=== PATIENT | male | born 1975 | race Caucasian/White ===

== ENCOUNTER → 2021-03-20 09:55 | Outpatient (CLI) | payer OTHER, SELFPAY ==
[2020-09-24 14:53] VITALS: BMI 34.9
[2021-03-20 10:32] LABS: Absolute Lymphocyte Count 2.89 X10^3/uL (0.83-4.51); Absolute Neutrophil Count 5.2 X10^3/uL (2.0-7.7); Basophil# 0.06 X10^3/uL; Basophil% 0.7 % (0-1); Eosinophil# 0.22 X10^3/uL; Eosinophils% 2.4 % (0-5); Hematocrit 42.8 % (40-54); Hemoglobin 14.2 g/dL (13.0-16.5); Lymphocyte # 2.89 X10^3/ul (0.83-4.51); Lymphocyte % 31.7 % (19-41); Mean Corp Hgb Conc 33.2 g/dL (32-36); Mean Corpuscular Hgb 28.7 pg (27.0-32.0); Mean Corpuscular Volume 86.6 fL (80-94); Mean Platelet Vol. 10.2 fl (6.2-12.0); Monocyte# 0.72 X10^3/uL; Monocyte% 7.9 % (0-10); NRBC Flagged by Analyzer 0 % (0-5); Neutrophil # 5.19 X10^3/uL (2.7-7.7); Neutrophil % 56.9 % (47-70); Platelet Count 284 K/mm3 (150-450); RBC Distribution Width SD 44.2 fl (35.1-43.9); Red Blood Count 4.94 M/mm3 (4.6-6.2); White Blood Count 9.1 K/mm3 (4.4-11.0)
[2021-03-20 11:05] LABS: Ferritin 37 ng/mL (26-388); Iron 80 ug/dL (65-175); Iron Binding Capacity,Total 320 ug/dL (250-450)
[2021-03-20 18:00] LABS: Xtra Tube EP Lab EXTRA TUBE
== END ==
LOC: LAB 09:57
PROVIDERS: PCP Student in an Organized Health Care Education/Training Program; Visit Provider Internal Medicine Hematology & Oncology
DX: D50.9 Iron deficiency anemia, unspecified (principal)
CPT/HCPCS: 36415; 82728; 83540; 83550; 85025

== ENCOUNTER → 2021-04-12 09:15 | Outpatient (CLI) | payer OTHER, SELFPAY ==
[2021-03-30 15:12] VITALS: BMI 35.0
--- NOTE | 2021-04-12 09:19 | RAD_ITS ---
STUDY: X-RAY - ORBITS REASON FOR EXAM: Male, 46 years old. PRIOR TO MRI -- MRI TO BE DONE AT ANOTHER FACILITY TECHNIQUE: 2 view(s) of the orbits were obtained. COMPARISON: None. FINDINGS: Normal bilateral orbits without a metallic orbital foreign body. Normal visualized facial bones. Normal paranasal sinuses. The soft tissue structures are unremarkable. RAD/Orbits for Foreign Body IMPRESSION: No demonstrated metallic orbital foreign body. The patient is cleared for an MRI examination. Electronically Signed: Luca Figueroa MD at 10:07 EDT , Service support ,
== END ==
PROVIDERS: PCP Student in an Organized Health Care Education/Training Program
DX: Z01.818 Encounter for other preprocedural examination (principal)
CPT/HCPCS: 70030

== ENCOUNTER 2022-08-09 16:16 | Emergency (ER) | payer SELFPAY ==
[2022-08-09 16:17] VITALS: BP 186/102; PULSE 88; RESP 15; TEMP 36.6; O2SAT 100; BMI 35.9
--- NOTE | 2022-08-09 17:18 | EDS_ITS ---
HPI History of Present Illness Chief Complaint: Upper Extremity Injury [facility] Medical History Bifascicular block CAD (coronary artery disease) Chronic headaches Diabetes mellitus Elevated liver enzymes Generalized anxiety disorder with panic attacks Genital warts Heart failure with preserved ejection fraction, borderline, class II History of head injury History of hyperkalemia History of hypermagnesemia Hyperlipidemia, mixed Hypertension Iron deficiency Left anterior fascicular block Left ventricular hypertrophy Leukocytosis Marijuana use Morbid obesity Non-insulin dependent type 2 diabetes mellitus Onycholysis of toenail MOSHE (obstructive sleep apnea) [place]-Schlatter's disease Peripheral edema Right bundle branch block Subclinical hypothyroidism Thrombocytosis Unstable angina Home Medications acetaminophen 325 mg tablet 650 mg PO Q4H PRN PRN Pain 1-10 Or Fever 09/07/20 [History Last Taken Unknown] aspirin 81 mg tablet,delayed release 81 mg PO DAILY 09/07/20 [History Last Taken Unknown] atorvastatin 40 mg tablet 40 mg PO QHS 09/07/20 [History Last Taken Unknown] icosapent ethyl 1 gram capsule 2 g PO BID 09/07/20 [History Last Taken Unknown] lisinopril 10 mg tablet 10 mg PO DAILY 09/07/20 [History Last Taken Unknown] metformin 1,000 mg tablet 1,000 mg PO BID 09/07/20 [History Last Taken Unknown] metoprolol succinate 100 mg tablet,extended release 24 hr 100 mg PO DAILY 09/07/20 [History Last Taken Unknown] glipizide 5 mg tablet 5 mg PO DAILY 10/18/21 [History Last Taken Unknown] oxycodone-acetaminophen 5 mg-325 mg tablet (Percocet) 1 tab PO Q6H PRN pain 3 days #10 tabs 08/09/22 [Rx Last Taken Unknown] Allergy/AdvReac Type Severity Reaction Status Date / Time No Known Allergies Allergy Verified 08/09/22 16:17 Family History Mother Arthritis CHF (congestive heart failure) CAD (coronary artery disease) Depression Fibromyalgia Heart disease Heart failure Hypertension Father Arthritis COPD (chronic obstructive pulmonary disease) CAD (coronary artery disease) Heart disease Hypertension Hypercholesteremia History of PTCA CVA (cerebral vascular accident) Grandmother Breast cancer Unknown CVA (cerebral vascular accident) Surgical History S/P CABG x 2 Social History Smoking Status: Current every day smoker tobacco type: cigarettes alcohol intake: never substance use type: does not use chaitanya/methodist: Adventist seatbelt use: always do you feel safe at home: Yes EXAM Physical Exam Const Vital Signs: 08/09/22 16:17 Temperature 97.8 F Temperature Source Temporal Pulse Rate 88 Respiratory Rate 15 Blood Pressure 186/102 H Blood Pressure Mean 130 Pulse Ox 100 Oxygen Delivery Method Room Air MDM MDM MDM Narrative Medical decision making narrative: I have personally performed a face to face assessment of the patient and have reviewed the TIFFANY Note. I performed a substantive portion of the visit including all aspects of the following. My henriquez findings include: History is [patient presents the emergency department with an injury to his left upper arm. Patient states that he was holding up a transmission as he was working on a clutch on his vehicle when he felt and heard a pop in the posterior aspect of his upper arm and he had severe and immediate pain. Patient is right-hand dominant.] Exam is [HEENT-PERRLA, EOMI. Cranial nerves II through XII grossly intact. TMs clear. Mucous membranes moist. No adenopathy. Cardiovascular-regular rate and rhythm without murmur or ectopy Lungs-clear to auscultation, chest wall stable without crepitus or subcu emphysema Abdomen-normoactive bowel sounds, soft, nontender, no rebound or rigidity, no peritoneal signs. Extremities-intact ?4. Left arm-patient has tenderness palpation over the distal humerus posteriorly at the insertion of the triceps tendon. There is a fullness there. He is able to fully extend the arm. He is neurovascular intact distally.] Medical Decison Making [patient will have x-rays of his humerus obtained. Patient case will be discussed with Ortho PT physician on-call as I suspect patient may have a tear of his tricep muscle or tendon. Patient will be given a sling and prescription for pain medicine such as [place]. Patient to follow-up with orthopedics in 3 to 5 days.] X-rays did show questionable avulsion fracture posterior elbow. We discussed case with orthopedic surgeon who recommended sling and pain control and they can see him in the office for follow-up. I suspect possibility of a tricep tendon rupture. Other additions or changes: [None] Radiography Diagnostic Testin view x-rays of humerus obtained interpreted by myself as no acute fractures or dislocations. Radiology felt there might be a subtle avulsion fracture posterior elbow versus dystrophic calcification Discharge Plan Triage Chief Complaint: Upper Extremity Injury ED Midlevel Provider: Radha Lopez ED Provider: Orlin Hood Dx/Rx/DC Orders Prescriptions: No Action glipizide 5 mg tablet 5 mg PO DAILY atorvastatin 40 MG tablet 40 mg PO QHS acetaminophen 325 MG tablet 650 mg PO Q4H PRN PRN (Reason: Pain 1-10 Or Fever) metoprolol succinate 100 MG tablet extended release 24 hr 100 mg PO DAILY aspirin 81 MG tablet,delayed release (DR/EC) 81 mg PO DAILY metformin 1,000 MG tablet 1,000 mg PO BID lisinopril 10 MG tablet 10 mg PO DAILY icosapent ethyl 1 GM capsule 2 g PO BID Primary Care Provider: Delano Poole Referrals: Delano Poole DO [Primary Care Provider] -
--- NOTE | 2022-08-09 17:18 | EX.ED.UPPERE ---
HPI History of Present Illness Chief Complaint: Upper Extremity Injury Narrative Narrative: Patient presents today with left arm pain. He is he was working today with a heavy transmission that he was holding up above his head when he felt a pop in the back of his upper left arm. He states shortly after this his left upper arm became very swollen and he started to notice bruising in the area. He states he has felt some intermittent tingling in his wrist and fingers. He is concerned that he tore a muscle in the back of his upper arm. He denies any other injuries. [facility] Medical History Bifascicular block CAD (coronary artery disease) Chronic headaches Diabetes mellitus Elevated liver enzymes Generalized anxiety disorder with panic attacks Genital warts Heart failure with preserved ejection fraction, borderline, class II History of head injury History of hyperkalemia History of hypermagnesemia Hyperlipidemia, mixed Hypertension Iron deficiency Left anterior fascicular block Left ventricular hypertrophy Leukocytosis Marijuana use Morbid obesity Non-insulin dependent type 2 diabetes mellitus Onycholysis of toenail MOSHE (obstructive sleep apnea) [place]-Schlatter's disease Peripheral edema Right bundle branch block Subclinical hypothyroidism Thrombocytosis Unstable angina Home Medications acetaminophen 325 mg tablet 650 mg PO Q4H PRN PRN Pain 1-10 Or Fever 09/07/20 [History Last Taken Unknown] aspirin 81 mg tablet,delayed release 81 mg PO DAILY 09/07/20 [History Last Taken Unknown] atorvastatin 40 mg tablet 40 mg PO QHS 09/07/20 [History Last Taken Unknown] icosapent ethyl 1 gram capsule 2 g PO BID 09/07/20 [History Last Taken Unknown] lisinopril 10 mg tablet 10 mg PO DAILY 09/07/20 [History Last Taken Unknown] metformin 1,000 mg tablet 1,000 mg PO BID 09/07/20 [History Last Taken Unknown] metoprolol succinate 100 mg tablet,extended release 24 hr 100 mg PO DAILY 09/07/20 [History Last Taken Unknown] glipizide 5 mg tablet 5 mg PO DAILY 10/18/21 [History Last Taken Unknown] oxycodone-acetaminophen 5 mg-325 mg tablet (Percocet) 1 tab PO Q6H PRN pain 3 days #10 tabs 08/09/22 [Rx Last Taken Unknown] Allergy/AdvReac Type Severity Reaction Status Date / Time No Known Allergies Allergy Verified 08/09/22 16:17 Family History Mother Arthritis CHF (congestive heart failure) CAD (coronary artery disease) Depression Fibromyalgia Heart disease Heart failure Hypertension Father Arthritis COPD (chronic obstructive pulmonary disease) CAD (coronary artery disease) Heart disease Hypertension Hypercholesteremia History of PTCA CVA (cerebral vascular accident) Grandmother Breast cancer Unknown CVA (cerebral vascular accident) Surgical History S/P CABG x 2 Social History Smoking Status: Current every day smoker tobacco type: cigarettes alcohol intake: never substance use type: does not use chaitanya/baptism: Jain seatbelt use: always do you feel safe at home: Yes ROS ROS ED Constitutional Constitutional ED: Denies chills, fever(s) or sweats Eyes Eyes: Denies blurry vision, change in vision or diplopia ENT ENT ED: Denies rhinorrhea or sore throat Cardiovascular Cardiovascular: Denies chest pain or palpitations Respiratory/Chest Respiratory/Chest: Denies cough, dyspnea or dyspnea on exertion Gastrointestinal Gastrointestinal: Denies abdominal pain, diarrhea, nausea or vomiting Genitourinary Genitourinary ED: Denies dysuria, hematuria or urinary frequency Musculoskeletal Musculoskeletal: Reports extremity pain and limited range of motion; Denies back pain or neck pain Integumentary Denies abscess, Abrasions or rash Neurologic Neurologic: Denies headache(s), paresthesias or weakness Psychiatric Psychiatric: Denies anxiety or depression Hematologic/Lymphatic Hematologic/Lymphatic: Denies easy bleeding EXAM Physical Exam Const Vital Signs: 08/09/22 16:17 Temperature 97.8 F Temperature Source Temporal Pulse Rate 88 Respiratory Rate 15 Blood Pressure 186/102 H Blood Pressure Mean 130 Pulse Ox 100 Oxygen Delivery Method Room Air Positive well nourished and well developed General Appearance ED: well developed and NAD HEENT Reports moist mucous membranes normocephalic and atraumatic Eyes PERRL and EOMs intact bilaterally Neck full ROM and supple Chest Wall inspection of chest normal and palpation of chest normal Resp normal respiratory effort and clear to auscultation bilaterally Cardio regular rate, regular rhythm and no murmurs GI non-tender, non-distended and no masses Palpation: soft Back/Spine Cervical Spine: Negative for cervical spine tenderness Thoracic Spine / Upper Back: Negative for thoracic spinal tenderness Lumbar Spine / Lower Back: Negative for lumbar spinal tenderness Extremity Extremity Narrative: Patient has edema, tenderness, and ecchymosis to the posterior aspect of L upper arm. Neuro oriented x3 MDM MDM MDM Narrative Medical decision making narrative: I have personally performed a face to face assessment of the patient and have reviewed the TIFFANY Note. I performed a substantive portion of the visit including all aspects of the following. My henriquez findings include: History is [patient presents the emergency department with an injury to his left upper arm.? Patient states that he was holding up a transmission as he was working on a clutch on his vehicle when he felt and heard a pop in the posterior aspect of his upper arm and he had severe and immediate pain.? Patient is right-hand dominant.] Exam is [HEENT-PERRLA, EOMI.? Cranial nerves II through XII grossly intact.? TMs clear.? Mucous membranes moist.? No adenopathy. Cardiovascular-regular rate and rhythm without murmur or ectopy Lungs-clear to auscultation, chest wall stable without crepitus or subcu emphysema Abdomen-normoactive bowel sounds, soft, nontender, no rebound or rigidity, no peritoneal signs. Extremities-intact ?4.? Left arm-patient has tenderness palpation over the distal humerus posteriorly at the insertion of the triceps tendon.? There is a fullness there.? He is able to fully extend the arm.? He is neurovascular intact distally.] Medical Decison Making [patient will have x-rays of his humerus obtained.? Patient case will be discussed with Ortho PT physician on-call as I suspect patient may have a tear of his tricep muscle or tendon.? Patient will be given a sling and prescription for pain medicine such as [place].? Patient to follow-up with orthopedics in 3 to 5 days.] Other additions or changes: [None] Patient was provided pain control here in the ED. He will be following up with Dr. Traore. He was provided a sling. Patient is comfortable with plan and I am comfortable with patient discharging home. He has been sent home with pain control. He has been instructed to ice the area for the next few days. Radiography Diagnostic Testin view x-rays of humerus obtained interpreted by myself as no acute fractures or dislocations.? Radiology in agreement. This x-ray was also reviewed and interpreted by attending ED physician. Discharge Plan Triage Chief Complaint: Upper Extremity Injury ED Midlevel Provider: Radha Lopez ED Provider: Orlin Hood Dx/Rx/DC Orders Clinical Impression: Injury of tendon of triceps Instructions: ED Sling Prescriptions: New oxycodone-acetaminophen [Percocet] 5-325 mg tablet 1 tab PO Q6H PRN (Reason: pain) 3 Days Qty: 10 0RF No Action glipizide 5 mg tablet 5 mg PO DAILY atorvastatin 40 MG tablet 40 mg PO QHS acetaminophen 325 MG tablet 650 mg PO Q4H PRN PRN (Reason: Pain 1-10 Or Fever) metoprolol succinate 100 MG tablet extended release 24 hr 100 mg PO DAILY aspirin 81 MG tablet,delayed release (DR/EC) 81 mg PO DAILY metformin 1,000 MG tablet 1,000 mg PO BID lisinopril 10 MG tablet 10 mg PO DAILY icosapent ethyl 1 GM capsule 2 g PO BID Primary Care Provider: Delano Poole Referrals: Baudilio Traore DO [Med Staff - Active Staff] - 3-5 Days Delano Poole DO [Primary Care Provider] - Activity Restrictions/Additional Instructions: You can ice the area for 10 to 15 minutes 3-4 times a day for the next few days. Follow-up with Dr. Traore in orthopedics. You can move your arm as tolerated but do use sling. Disposition Disposition: Home, Self Care Discharge Date/Time: 08/09/22 18:57
--- NOTE | 2022-08-09 17:25 | RAD_ITS ---
STUDY: X-RAY - LEFT HUMERUS REASON FOR EXAM: Male, 47 years old. injury TECHNIQUE: 2 view(s) of the humerus. COMPARISON: None. FINDINGS: Normal visualized humerus. There is no demonstrated fracture or osseous destructive process. 2 subcutaneous 4 to 5 mm ossific densities noted posterior to the elbow. There is no demonstrated soft tissue abnormality. RAD/Humerus min 2 Views IMPRESSION: Avulsion fracture versus dystrophic calcification versus subcutaneous foreign body posterior elbow. Electronically Signed: Maykel Garcia MD at 17:59 EST ,
[2022-08-09] MEDS: HYDROcodone Bitartrate/Apap 5/325 Tablet PO (17:55)
== END 2022-08-09 18:57 | disposition home or self-care (01) ==
PROVIDERS: Emergency Provider Emergency Medicine; PCP Student in an Organized Health Care Education/Training Program; Visit Provider Emergency Medicine
DX: M79.622 Pain in left upper arm (principal); I11.0 Hypertensive heart disease with heart failure; I50.30 Unspecified diastolic (congestive) heart failure; E11.9 Type 2 diabetes mellitus without complications; I25.10 Atherosclerotic heart disease of native coronary artery without angina pectoris; E78.2 Mixed hyperlipidemia; F17.210 Nicotine dependence, cigarettes, uncomplicated
CPT/HCPCS: 73060; 99283